=== PATIENT | female | born 1980 | race Caucasian/White ===

== ENCOUNTER → 2019-03-05 | Outpatient (CLI) | payer BC ==
[2006-10-16 19:40] VITALS: PULSE 54; TEMP 98.7
== END ==
LOC: MC.RAD 13:41
DX: Z12.31 Encounter for screening mammogram for malignant neoplasm of breast (principal)

== ENCOUNTER → 2020-10-02 | Outpatient (CLI) | payer BC ==
[2006-10-16 19:40] VITALS: PULSE 54; TEMP 98.7
== END ==
LOC: MC.RAD 13:00
DX: Z12.31 Encounter for screening mammogram for malignant neoplasm of breast (principal)

== ENCOUNTER → 2021-11-30 | Outpatient (CLI) | payer BC ==
[2006-10-16 19:40] VITALS: PULSE 54; TEMP 98.7
== END ==
LOC: MC.RAD 12:55
DX: N64.52 Nipple discharge (principal)